=== PATIENT | male | born 1970 | race Caucasian/White ===

== ENCOUNTER 2016-06-14 15:05 | Emergency (ER) | payer BC ==
[~2016-06-14] VITALS: Ht 185.4 cm; Wt 135.1 kg
[2016-06-14] MEDS ORDERED: DOXYCYCLINE HY100 MG PO (17:04)
[2016-06-14 17:14] VITALS: BP 131/73
== END 2016-06-14 17:15 | disposition home or self-care (01) ==
LOC: EME 15:05
PROC: 3E0234Z Introduction of Serum, Toxoid and Vaccine into Muscle, Percutaneous Approach (ICD-10-PCS; principal; 2016-06-14)
DX: S51.851A Open bite of right forearm, initial encounter (principal); W54.0XXA Bitten by dog, initial encounter; J40 Bronchitis, not specified as acute or chronic; M54.2 Cervicalgia; Z73.3 Stress, not elsewhere classified; I10 Essential (primary) hypertension; Z23 Encounter for immunization
CPT/HCPCS: 71020; 99281; 99284